=== PATIENT | female | born 1980 | race Caucasian/White ===

== ENCOUNTER → 2017-03-22 | Outpatient (CLI) | payer OTHER ==
--- NOTE | ~2017-03-22 | US67 ---
[facility]. [facility] A Service of [facility] & [facility] RADIOLOGY TEXT RESULTS PATIENT: SIOBHAN HOSKINS LOCATION: [facility] : [birth year] UNIT #: [id number] AGE: [address]: Leandra Sawyer MD SEX: F ORDER DR: [id number] [address] [id number] O MR#: [id number] Acc #: [id number] NAME: SIOBHAN HOSKINS : 1980 SEX: F STUDY DATE/TIME: 03/22/2017 10:35 UNIT: [facility] ROOM: STUDY DESCRIPTION: Gallbladder Attending Physician: Leandra Sawyer M.D. Referring Physician: Leandra Sawyer M.D. Ordering Physician: Leandra Sawyer M.D. Primary Care Physician: Leandra Sawyer M.D. MEDICAL IMAGING REPORT This report is preliminary unless electronic signature is present. EXAM Right upper quadrant ultrasound 03/22/2017 INDICATIONS 37-year-old female with right upper quadrant pain for 2 months diarrhea. TECHNIQUE Sonographic imaging of the right upper quadrant and gallbladder was performed. Comparison is 05/22/2012 FINDINGS The pancreas is unremarkable to the extent visualized. The liver measures about 14.9 cm long axis. There is no focal liver mass, ascites or intrahepatic ductal dilatation. The gallbladder is sonographically unremarkable. Extrahepatic common bile duct measures 2 mm. Right kidney nonobstructed, measuring 9.3 cm long axis. IMPRESSION 1. Negative right upper quadrant ultrasound. Dictated by... Darryn Sánchez M.D. THIS IS AN ELECTRONICALLY VERIFIED REPORT Darryn Sánchez M.D. at 03/23/2017 7:17 AM OFELIA/stacey TD: 03/22/2017 23:10 JOB #: [id number] MEDICAL IMAGING REPORT Page 1 of 1
== END | disposition home or self-care (01) ==
LOC: SGUS 09:59
DX: R10.84 Generalized abdominal pain (principal)
CPT/HCPCS: 76705